=== PATIENT | male | born 1985 | race Two or more races ===

== ENCOUNTER 2019-01-26 18:26 | Emergency (ER) | payer SELFPAY ==
[~2019-01-26] VITALS: Ht 182.9 cm; Wt 72.6 kg
[2019-01-26 18:40] VITALS: BP 118/78
--- NOTE | 2019-01-26 18:40 | NUR ---
ED Nurse Note: walked in to ED due to sharp cp for couple hrs. per pt, "I had panic attack before pain started." pt ao4 nad vss. ekg at bedside; nsr. pt reports sudden relief of pain as "panic attack passed". resting in bed comfortably.
--- NOTE | 2019-01-26 19:30 | NUR ---
ED Nurse Note: urine collected; sent down to lab.
--- NOTE | 2019-01-26 20:30 | NUR ---
ED Nurse Note: patient states being transient. refuses to disclose location post discharge. minicog completed; pt refused clock drawing. provided pt with nourishment. pt denies cp at the moment; anxiety has lessened. provided pt with mental health referrals.
--- NOTE | 2019-01-26 20:33 | Emergency Room Report ---
History of Present Illness General Chief Complaint: Chest Pain Source: Patient Present Illness HPI 33-year-old male with no symptom past medical history here complaining of sudden onset of chest tightness after feeling anxious today. Denies any pain radiation, dizziness, headache, palpitation, abdominal pain nausea vomiting. Patient reports [place], denying any drug use, tobacco smoke , alcohol intake. Denies any past history of anxiety. Denies suicidal and homicidal ideations. Denies taking any medication for psychiatric purposes. Patient sitting comfortably with stable vital signs. Patient is cooperative. Denies URI symptoms, fever and chills. Allergies: Coded Allergies: No Known Allergies (Unverified , 01/26/19) Patient History Past Medical History: see triage record Past Surgical History: unable to obtain Pertinent Family History: none Immunizations: UTD Reviewed Nursing Documentation: PMH: Agreed; PSxH: Agreed Nursing Documentation-PMH Past Medical History: No History, Except For Review of Systems All Other Systems: negative except mentioned in HPI Physical Exam Vital Signs Date Time Temp Pulse Resp B/P (MAP) Pulse Ox O2 Delivery O2 Flow Rate FiO2 01/26/19 18:31 98.1 88 18 118/78 (91) 96 Room Air Sp02 EP Interpretation: reviewed, normal General Appearance: no apparent distress, alert, GCS 15, non-toxic Head: normocephalic, atraumatic Eyes: bilateral eye normal inspection, bilateral eye PERRL ENT: hearing grossly normal, normal pharynx, no angioedema, normal voice Neck: full range of motion, supple/symm/no masses Respiratory: chest non-tender, lungs clear, normal breath sounds, speaking full sentences Cardiovascular #1: regular rate, rhythm, no edema Cardiovascular #2: 2+ dorsalis pedis (R), 2+ dorsalis pedis (L) Gastrointestinal: normal bowel sounds, non tender, soft, non-distended, no guarding, no rebound Rectal: deferred Genitourinary: normal inspection, no CVA tenderness Musculoskeletal: back normal, gait/station normal, normal range of motion, non- tender, no calf tenderness Neurologic: alert, oriented x3, responsive, motor strength/tone normal, sensory intact, speech normal Psychiatric: judgement/insight normal, memory normal, mood/affect normal, no suicidal/homicidal ideation, anxious Skin: no rash Lymphatic: no adenopathy Medical Decision Making PA Attestation All my diagnosis and treatment plans were reviewed ad discussed with my supervising physician Dr. Cornell Homeless Attestation The treating physician has assessed and agrees that patient is medically stable for outpatient disposition Diagnostic Impression: Primary Impression: Chest pain, unspecified Additional Impression: Acute anxiety ER Course 33-year-old male with no symptom past medical history here complaining of sudden onset of chest tightness after feeling anxious today. Denies any pain radiation, dizziness, headache, palpitation, abdominal pain nausea vomiting. Patient reports that [place], denying any drug use, tobacco smoke , alcohol intake. Denies any past history of anxiety. Denies suicidal and homicidal ideations. Denies taking any medication for psychiatric purposes. Patient sitting comfortably with stable vital signs. Patient is cooperative.denies URI symptoms, fever/chills. Ddx considered but are not limited to: generalized anxiety disorder, panic attack, depression with psycotic featurs, bipolar disorder, drug overdose , MS Vital signs: are WNL, pt. is afebrile H&PE are most consistent with: Unspecified chest pain most likely secondary to anxiety ORDERS: CXR, EKG, tox screen ED INTERVENTIONS: None required at this time. DISCHARGE: At this time pt. is stable for d/c to home. Will provide printed patient care instructions, and any necessary prescriptions. Care plan and follow up instructions have been discussed with the patient prior to discharge. Patient to follow-up with mental health institutions and I gave her a list for to assess anxiety. If worsening symptoms return to the emergency room. Patient cooperative and agrees with the above treatment. EKG Diagnostic Results Rate: normal Rhythm: NSR ST Segments: no acute changes Other Impression No acute ST changes Chest X-Ray Diagnostic Results Chest X-Ray Diagnostic Results : Chest X-Ray Ordered: Yes # of Views/Limited/Complete: 1 View Indication: Chest Pain EP Interpretation: Yes JOSIE Xray: Interpretation reviewed, by supervising MD, and agrees with findings. Interpretation: no consolidation, no effusion, no pneumothorax Impression: No acute disease Electronically Signed by: Jennifer Mason PA-C Last Vital Signs Date Time Temp Pulse Resp B/P (MAP) Pulse Ox O2 Delivery O2 Flow Rate FiO2 01/26/19 18:40 88 18 Room Air 01/26/19 18:40 98.1 118/78 96 Disposition: HOME, SELF-CARE Condition: Stable Scripts No Active Prescriptions or Reported Meds Patient Instructions: Generalized Anxiety Disorder, Nonspecific Chest Pain Jennifer Barron Jan 26, 2019 20:33
[2019-01-26 20:43] VITALS: BP 122/78
--- NOTE | 2019-01-26 20:43 | NUR ---
Homeless Discharge: Patient is being discharged from medical care. Awake, alert and oriented x3. After care instructions, including referral to community resources were given. Patient verbalized understanding of After care instructions; at this time patient does not request medications, equipment or placement. Patient signed patient consent in the medical record for patient destination upon discharge. ID band removed. Patient ambulated out with all personal belongings with steady gait.
--- NOTE | 2019-01-27 10:49 | Diagnostic Imaging Report ---
Indication: Chest pain Technique: One view of the chest Comparison: none Findings: Lungs and pleural spaces are clear. Heart size is normal. Impression: No acute process
--- NOTE | 2019-01-30 00:19 | Cardiology Report ---
APPROVED REPORT EKG Measurement Heart [id number] Normal sinus rhythm Normal ECG
== END 2019-01-26 20:45 | disposition home or self-care (01) ==
LOC: EMR 20:30
DX: F41.1 Generalized anxiety disorder (principal); R07.9 Chest pain, unspecified
CPT/HCPCS: 71045; 80307; 93005; 99283